=== PATIENT | female | born 1940 | race Two or more races ===

== ENCOUNTER → 2020-12-16 | Outpatient (CLI) | payer MEDICARE, MEDICAID ==
--- NOTE | 2020-12-16 17:16 | CARD ---
MR#: [id number] Date of Study: 12/16/2020 Ordering Physician: ALONA BLOUNT, Referring Physician: ALONA BLOUNT, Tech: Belinda Cruzrenitamack, [facility] APPROVED REPORT EXAM: Two-dimensional and M-mode echocardiogram with Doppler and color Doppler. Other Information Quality : AverageHR: 63bpm INDICATION Cardiac Disease: CAD RISK FACTORS Hypertension 2D DIMENSIONS Left Atrium(2D)2.7 (1.6-4.0cm)IVSd1.1 (0.7-1.1cm) Aortic Root(2D)3.0 (2.0-3.7cm)LVDd4.9 (3.9-5.9cm) LVOT Diameter2.0 (1.8-2.4cm)PWd1.0 (0.7-1.1cm) LVDs3.2 (2.5-4.0cm)FS (%) 35.1 % SV74.0 mlLVEF(%)64.2 (>50%) Aortic Valve AoV Peak Hernán.216.3cm/sAoV VTI46.2cm AO Peak GR.18.7mmHgLVOT Peak Hernán.151.1cm/s LVOT VTI 34.20cmAO Mean GR.9mmHg HOLLI (VMAX)1.86ch6HFE (VTI)2.25cm2 Mitral Valve MV E Zbtnqhtf39.8cm/sMV DECEL [id number] MV A Ynjvgcgg36.8cm/sMV DIE83wd E/A Ratio0.9MVA (PHT)2.65cm2 TDI E/Lateral E'9.9E/Medial E'9.8 Pulmonary Valve PV Peak Zkfolssc17.0cm/sPV Peak Grad.4mmHg Tricuspid Valve TR P. Oofixasd207fc/sTR Peak Gr.31mmHg Pulmonary Vein PVa lwofzpbz683vwcf LEFT VENTRICLE The left ventricle is normal size. There is mild concentric left ventricular hypertrophy. The left ve ntricular systolic function is normal and the ejection fraction is within normal range. The Ejection Fraction is 55-60%. There is normal LV segmental wall motion. Transmitral Doppler flow pattern is Gra de I-abnormal relaxation pattern. RIGHT VENTRICLE The right ventricle is normal size. There is normal right ventricular wall thickness. The right ventr icular systolic function is normal. ATRIA The left atrium size is normal. The right atrium size is normal. The interatrial septum is intact wit h no evidence for an atrial septal defect or patent foramen ovale as noted on 2-D or Doppler imaging. AORTIC VALVE The aortic valve is not well visualized. Doppler and Color Flow revealed no significant aortic regurg itation. There is no significant aortic valvular stenosis. Calculated aortic valve area is 2.36 cm2 w ith maximum pressure gradient of 23 mmHg and mean pressure gradient of 11 mmHg. MITRAL VALVE The mitral valve is normal in structure and function. There is no evidence of mitral valve prolapse. There is no mitral valve stenosis. Doppler and Color Flow revealed no mitral valve regurgitation note d. TRICUSPID VALVE The tricuspid valve is normal in structure and function. Doppler and Color Flow revealed trace tricus pid regurgitation with an estimated PAP of 42 mmHg. There is no tricuspid valve stenosis. PULMONIC VALVE The pulmonic valve is not well visualized. Doppler and Color Flow revealed no pulmonic valvular regur gitation. GREAT VESSELS The aortic root is normal in size. The IVC is normal in size and collapses >50% with inspiration. PERICARDIAL EFFUSION There is no evidence of significant pericardial effusion. Critical Notification Critical Value: No <Conclusion> The left ventricle is normal size. The left ventricular systolic function is normal and the ejection fraction is within normal range. The Ejection Fraction is 55-60%. There is mild concentric left ventricular hypertrophy. Doppler and Color Flow revealed no significant aortic regurgitation. There is no significant aortic valvular stenosis. Doppler and Color Flow revealed no mitral valve regurgitation noted. Doppler and Color Flow revealed trace tricuspid regurgitation with an estimated PAP of 42 mmHg. Signed by : Alona Blount MD Electronically Approved : 12/16/2020 17:16:09
== END ==
LOC: ECHO 12:47
PROVIDERS: ATTEND Internal Medicine Cardiovascular Disease
DX: I51.7 Cardiomegaly (principal); I25.10 Atherosclerotic heart disease of native coronary artery without angina pectoris
CPT/HCPCS: 93306

== ENCOUNTER → 2021-06-23 | Outpatient (CLI) | payer MEDICARE, MEDICAID ==
[~2021-06-23] MED LIST: REGADENOSON 0.4 MG/5 ML DISP.SYRIN. IV ONE
--- NOTE | 2021-06-24 07:52 | RAD ---
MR#: [id number] Date of Study: 06/23/2021 Ordering Physician: ALONA BUCK, Referring Physician: MICHAEL CAMERON Tech: RT James Quinones) (N) APPROVED REPORT Test Type: Pharmacological Stress Nurse/Tech: Penelope Rodríguez R.N. Test Indications: CAD Cardiac History: heart cath- ballooned,htn, obesity, Medications: See Electronic Medical Record Medical History: See Electronic Medical Record Resting ECG: SR Resting Heart Rate: 66 bpm Resting Blood Pressure: 204/90mmHg Pretest Chest Pain: No chest pain Nurse/Tech Notes S1S2, lungs CTA Consent: The procedure was explained to the patient in lay terms. Informed consent was witnessed. Kaushik eout was entered into [employer]. History and Stress Test performed by RT James Quinones) (N) Pharm. Details Pharmacologic stress testing was performed using 0.4mg per 5ml of regadenoson given intravenously ove r 7-10 seconds. Stress Symptoms SOA POST EXERCISE Reason for Termination: Infusion complete Max HR: 87 bpm Max Blood Pressure: 206/87mmHg Blood Pressure response to exercise: Normal blood pressure response during stress. Heart Rate response to exercise: wnl Chest Pain: No. Arrhythmia: No. ST Change: No. INTERPRETATION Stress EKG Conclusion: Baseline EKG showed sinus rhythm. No ischemic changes at peak stress. No arr hythmias. Imaging Protocol IMAGE PROTOCOL: Rest Tc-99m/stress Tc-99m 1 day Rest: Stress: Viability: Radiopharm.Tc99m KrgxwvqgtWv82m Sestamibi Dose10.2mCi 31.2mCi Duration 13min. 13min. Img Date 06/23/2021 06/23/2021 Inj-Img [id number]. 60min. Rest Admin Site:IV - Right AntecubitalAdministrator:RT Stacie (R)(N) Stress Admin Site: IV - Right AntecubitalAdministrator: RT Stacie (R)(N) STRESS DATA End Diast. Vol.46.0mlLVEDV index BSA26.0ml End Syst. Vol.5.0mlLVESV index BSA3.0ml Myocardial Mass90.0gEject. Czlguepm44.0% Stress Scores Regional WT1.00Summed WT13.00 Regional WM0.00Summed WM1.00 Study quality was good. Left Ventricular size was Normal at Rest and Stress. Lung uptake was . Left Ventricular ejection fraction is 72%. The rest and stress images show normal perfusion, normal contraction and thickening. LV Perf. Quant 17 Seg. SSS2.00 17 Seg. SRS0.00 17 Seg. SDS2.00 Stress Defect Extent (% LAD)0.00Rest Defect Extent (% LAD)0.00Rev. Defect Extent (% LAD)0.00 Stress Defect Extent (% LCX) 18.80Rest Defect Extent (% LCX)0.00Rev. Defect Extent (% LCX)15.00 Stress Defect Extent (% RCA)0.00Rest Defect Extent (% RCA)0.00Rev. Defect Extent (% RCA)0.00 Stress Defect Extent (% JENNIFER)4.30Rest Defect Extent (% JENNIFER)0.00Rev. Defect Extent (% JENNIFER)3.50 Conclusion 1. Regadenoson cardioisotope stress test did not show any evidence of ischemia or infarct. 2. Normal left ventricular systolic function with ejection fraction calculated at 72%. 3. Low risk for cardiac events. Signed by : Parminder Flores, Electronically Approved : 06/24/2021 07:52:21
== END ==
LOC: NM 09:53
PROVIDERS: ATTEND Internal Medicine Cardiovascular Disease
DX: I25.10 Atherosclerotic heart disease of native coronary artery without angina pectoris (principal)
CPT/HCPCS: 78452; 93017; A9500; J2785